=== PATIENT | female | born 1950 | race Caucasian/White ===

== ENCOUNTER 2022-12-13 18:41 | Inpatient (IN) | payer BC ==
[~2022-12-13] VITALS: Ht 170.2 cm; Wt 94.1 kg
[2022-12-13 19:31] LABS: CHLORIDE 107 mEq/L (98-107)
[2022-12-13 20:45] LABS: HEMATOCRIT. 22.7 % (36.0-48.0); HEMOGLOBIN. 8.8 g/dL (12.0-16.0); MEAN CORPUSCULAR HEMOGLOBIN 35.6 pg (28.0-32.0); MEAN CORPUSCULAR VOLUME 92.1 fL (81.0-99.0); MEAN PLATELET VOLUME 8.1 fl (7.4-10.4); PLATELET 333 x1000/uL (130-400); RED BLOOD CELL COUNT 2.46 mill/uL (4.2-5.4); RED CELL DISTRIBUTION WIDTH 17.7 % (11.6-14.6)
[2022-12-13 21:48] LABS: PLATELET ESTIMATE NORMAL
[2022-12-13] MEDS ORDERED: SODIUM CHLORIDE 0.9% 1,000 ML IV ONE (22:30)
[2022-12-13] MEDS: DEXT 5%/0.45% NACL 1000ML 1,000 ML IV SCH (23:45)
[2022-12-13] MEDS ORDERED: DIPHENHYDRAMINE 50MG/ML VIAL IV PRN (23:45)
[2022-12-13] MEDS ORDERED: ONDANSETRON HCL 4MG/2ML INJ IV PRN (23:45)
[2022-12-13] MEDS ORDERED: ACETAMINOPHEN 325MG TABLET PO PRN ×2 (23:45)
[2022-12-13] MEDS ORDERED: MAGNESIUM/ALUMINUM HYDROXIDE/SIMETHICONE 30ML UDC PO PRN (23:45)
[2022-12-14 06:42] LABS: CLARITY URINE CLOUDY (CLEAR); COLOR URINE YELLOW (YELLOW); KETONES URINE NEGATIVE (NEGATIVE); LEUKOCYTE ESTERASE URINE 3+ (NEGATIVE); NITRITE URINE NEGATIVE (NEGATIVE); OCCULT BLOOD URINE NEGATIVE (NEGATIVE); PROTEIN URINE 2+ (NEGATIVE); SPECIFIC GRAVITY URINE 1.017 (1.005-1.030); UROBILINOGEN URINE 0.2 E.U./dL (0.2-1.0)
[2022-12-14 09:34] VITALS: BP 110/62
[2022-12-14 09:52] VITALS: BP 110/62
[2022-12-14] MEDS: DEXT 5%/0.45% NACL 1000ML 1,000 ML IV SCH ×2 (11:00→21:50)
[2022-12-14 11:51] LABS: PHOSPHORUS 2.6 mg/dL (2.5-4.9)
[2022-12-14 12:00] VITALS: BP 106/58
[2022-12-14 12:17] LABS: HEPATITIS B SURFACE ANTIGEN NEGATIVE
[2022-12-14 12:44] LABS: MEAN CORPUSCULAR HEMOGLOBIN 31.1 pg (28.0-32.0); MEAN PLATELET VOLUME 8.6 fl (7.4-10.4); PLATELET 361 x1000/uL (130-400); RED BLOOD CELL COUNT 2.89 mill/uL (4.2-5.4); RED CELL DISTRIBUTION WIDTH 18.4 % (11.6-14.6)
[2022-12-14 14:08] LABS: PLATELET ESTIMATE NORMAL
[2022-12-14] MEDS: CITRIC ACID/SODIUM CITRATE SOLN 15ML UDC PO SCH ×2 (14:10→17:58)
[2022-12-14 16:00] VITALS: BP 105/63
[2022-12-14] MEDS ORDERED: MEROPENEM 1,000 MG in SODIUM CHLORIDE 0.9% 100 ML IV SCH (17:15)
[2022-12-14] MEDS ORDERED: ATOR20TA65 PO (19:01)
[2022-12-14] MEDS ORDERED: HYDR100T26 PO (19:01)
[2022-12-14] MEDS: MEROPENEM 500MG in NORMAL SALINE 50ML IV SCH (19:12)
[2022-12-14 20:00] VITALS: BP 112/61
[2022-12-15] VITALS: BP 118/69
[2022-12-15 04:00] VITALS: BP 138/62
[2022-12-15 05:06] LABS: PROTHROMBIN TIME 11.2 sec (9.6-11.0)
[2022-12-15 05:16] LABS: CHLORIDE 109 mEq/L (98-107)
[2022-12-15] MEDS: MEROPENEM 500MG in NORMAL SALINE 50ML IV SCH ×2 (06:06→18:10)
[2022-12-15] MEDS: DEXT 5%/0.45% NACL 1000ML 1,000 ML IV SCH (06:06)
[2022-12-15 06:43] LABS: HEMATOCRIT. 25.8 % (36.0-48.0); HEMOGLOBIN. 8.5 g/dL (12.0-16.0); MEAN CORPUSCULAR HEMOGLOBIN 28.3 pg (28.0-32.0); MEAN CORPUSCULAR VOLUME 85.4 fL (81.0-99.0); MEAN PLATELET VOLUME 8.4 fl (7.4-10.4); PLATELET 361 x1000/uL (130-400); RED BLOOD CELL COUNT 3.02 mill/uL (4.2-5.4); RED CELL DISTRIBUTION WIDTH 18.7 % (11.6-14.6)
[2022-12-15 08:00] VITALS: BP 98/49
[2022-12-15] MEDS: CITRIC ACID/SODIUM CITRATE SOLN 15ML UDC PO SCH ×3 (09:00→18:10)
[2022-12-15] MEDS ORDERED: MAGNESIUM HYDROXIDE 400MG/5ML 30ML UDC PO PRN (10:00)
[2022-12-15] MEDS ORDERED: SENNOSIDES 8.6MG TABLET PO PRN (10:00)
[2022-12-15 12:00] VITALS: BP 100/59
[2022-12-15 13:12] LABS: NUCLEATED RED BLOOD CELLS 3 /100 WBC; PLATELET ESTIMATE NORMAL
[2022-12-15 16:00] VITALS: BP 97/49
[2022-12-15] MEDS: DOCUSATE SODIUM 100MG CAPSULE PO SCH (18:10)
[2022-12-15 20:00] VITALS: BP 104/52
[2022-12-15] MEDS: ALLOPURINOL 100 MG TABLET PO SCH (21:39)
[2022-12-15] MEDS: HYDROXYUREA 500MG CAPSULE PO SCH (21:39)
[2022-12-16] VITALS: BP 120/57
[2022-12-16 04:00] VITALS: BP 120/69
[2022-12-16] MEDS: MEROPENEM 500MG in NORMAL SALINE 50ML IV SCH ×2 (06:17→17:23)
[2022-12-16] MEDS: DEXT 5%/0.45% NACL 1000ML 1,000 ML IV SCH (06:18)
[2022-12-16 08:00] VITALS: BP 105/62
[2022-12-16] MEDS: CITRIC ACID/SODIUM CITRATE SOLN 15ML UDC PO SCH ×3 (09:01→17:23)
[2022-12-16] MEDS: DOCUSATE SODIUM 100MG CAPSULE PO SCH ×2 (09:01→17:23)
[2022-12-16] MEDS: ALLOPURINOL 100 MG TABLET PO SCH (09:02)
[2022-12-16 11:35] LABS: BG BASE EXCESS -4.2 mmol/L (-2.0-2.0); BG CARBOXYHEMOGLOBIN 0.1 % (0.5-1.5); BG DEOXYHEMOGLOBIN 8.2 % (0.0-5.0); BG FRACTION INSPIRED OXYGEN 28; BG HCO3 ACT 19.3 mmol/L (22.0-26.0); BG METHEMOGLOBIN 0.4 % (0.0-1.5); BG OXYGEN SATURATION 91.8 % (92.0-98.5); BG OXYHEMOGLOBIN 91.3 % (94.0-97.0); BG PCO2 29.7 mmHg (35.0-45.0); BG SAMPLE SITE LEFT RADIAL; BG TOTAL HEMOGLOBIN 10.2 g/dL (12.0-18.0); BG VENT MODE NASAL CANNULA
[2022-12-16 12:00] VITALS: BP 108/67
[2022-12-16 16:00] VITALS: BP 109/53
[2022-12-16 20:00] VITALS: BP 119/59
[2022-12-16] MEDS: HYDROXYUREA 500MG CAPSULE PO SCH (21:14)
[2022-12-17] VITALS: BP 106/57
[2022-12-17] MEDS: DEXT 5%/0.45% NACL 1000ML 1,000 ML IV SCH ×3 (00:46→18:03)
[2022-12-17 04:00] VITALS: BP 110/58
[2022-12-17] MEDS: MEROPENEM 500MG in NORMAL SALINE 50ML IV SCH ×2 (05:39→18:02)
[2022-12-17 06:02] LABS: CHLORIDE 104 mEq/L (98-107)
[2022-12-17 07:01] LABS: HEMATOCRIT. 25.1 % (36.0-48.0); HEMOGLOBIN. 8.4 g/dL (12.0-16.0); MEAN CORPUSCULAR HEMOGLOBIN 28.5 pg (28.0-32.0); MEAN CORPUSCULAR VOLUME 85.7 fL (81.0-99.0); MEAN PLATELET VOLUME 8.2 fl (7.4-10.4); PLATELET 352 x1000/uL (130-400); RED BLOOD CELL COUNT 2.93 mill/uL (4.2-5.4); RED CELL DISTRIBUTION WIDTH 18.6 % (11.6-14.6)
[2022-12-17 08:00] VITALS: BP 114/61
[2022-12-17] MEDS: DOCUSATE SODIUM 100MG CAPSULE PO SCH ×2 (09:51→18:02)
[2022-12-17] MEDS: CITRIC ACID/SODIUM CITRATE SOLN 15ML UDC PO SCH ×3 (09:52→18:02)
[2022-12-17] MEDS: ALLOPURINOL 100 MG TABLET PO SCH (09:52)
[2022-12-17] MEDS ORDERED: FENTANYL CITRATE/PF 50MCG/ML 2ML VIAL ONE (11:43)
[2022-12-17] MEDS ORDERED: MIDAZOLAM HCL 5 MG/5 ML VIAL ONE (11:44)
[2022-12-17] MEDS ORDERED: IPRATROPIUM/ALBUTEROL 0.5-3(2.5)MG/3ML NEB ONE (11:45)
[2022-12-17] MEDS ORDERED: IPRATROPIUM/ALBUTEROL 0.5-3(2.5)MG/3ML NEB HHN NR (11:45)
[2022-12-17 12:00] VITALS: BP 118/59
[2022-12-17] MEDS ORDERED: ONDANSETRON HCL 4MG/2ML INJ ONE (12:17)
[2022-12-17] MEDS ORDERED: METOCLOPRAMIDE HCL 10MG/2ML VIAL ONE (12:17)
[2022-12-17 15:20] LABS: NUCLEATED RED BLOOD CELLS 2 /100 WBC
[2022-12-17 15:23] LABS: PLATELET ESTIMATE NORMAL
[2022-12-17 16:00] VITALS: BP 99/52
[2022-12-17 20:00] VITALS: BP 102/51
[2022-12-17] MEDS: HYDROXYUREA 500MG CAPSULE PO SCH (21:49)
[2022-12-18] VITALS: BP 98/55
[2022-12-18] MEDS: DEXT 5%/0.45% NACL 1000ML 1,000 ML IV SCH (00:29)
[2022-12-18 04:00] VITALS: BP 101/56
[2022-12-18] MEDS: MEROPENEM 500MG in NORMAL SALINE 50ML IV SCH ×2 (05:09→17:57)
[2022-12-18 08:00] VITALS: BP 97/60
[2022-12-18] MEDS: SODIUM CHLORIDE 0.9% 1,000 ML IV SCH (10:37)
[2022-12-18] MEDS: CITRIC ACID/SODIUM CITRATE SOLN 15ML UDC PO SCH ×3 (10:38→17:56)
[2022-12-18] MEDS: ALLOPURINOL 100 MG TABLET PO SCH (10:38)
[2022-12-18] MEDS: DOCUSATE SODIUM 100MG CAPSULE PO SCH ×2 (10:39→17:56)
[2022-12-18 12:00] VITALS: BP 104/61
[2022-12-18] MEDS ORDERED: FUROSEMIDE 40MG/4ML VIAL IVP NR (15:15)
[2022-12-18 16:00] VITALS: BP 106/61
[2022-12-18 18:58] LABS: HEMATOCRIT. 24.7 % (36.0-48.0); HEMOGLOBIN. 8.1 g/dL (12.0-16.0); MEAN CORPUSCULAR HEMOGLOBIN 28.7 pg (28.0-32.0); MEAN CORPUSCULAR VOLUME 87.2 fL (81.0-99.0); MEAN PLATELET VOLUME 8.4 fl (7.4-10.4); PLATELET 316 x1000/uL (130-400); RED BLOOD CELL COUNT 2.84 mill/uL (4.2-5.4); RED CELL DISTRIBUTION WIDTH 19.1 % (11.6-14.6)
[2022-12-18 20:00] VITALS: BP 92/43
[2022-12-18] MEDS: HYDROXYUREA 500MG CAPSULE PO SCH (20:06)
[2022-12-18 20:10] LABS: NUCLEATED RED BLOOD CELLS 3 /100 WBC; PLATELET ESTIMATE NORMAL
[2022-12-19 00:49] VITALS: BP 101/61
[2022-12-19 04:00] VITALS: BP 108/57
[2022-12-19] MEDS: SODIUM CHLORIDE 0.9% 1,000 ML IV SCH (04:06)
[2022-12-19] MEDS: MEROPENEM 500MG in NORMAL SALINE 50ML IV SCH (05:25)
[2022-12-19 08:00] VITALS: BP 111/55
[2022-12-19] MEDS: CITRIC ACID/SODIUM CITRATE SOLN 15ML UDC PO SCH ×2 (09:52→12:42)
[2022-12-19] MEDS: ALLOPURINOL 100 MG TABLET PO SCH (09:53)
[2022-12-19] MEDS: DOCUSATE SODIUM 100MG CAPSULE PO SCH (09:53)
[2022-12-19] MEDS ORDERED: FUROSEMIDE 40MG/4ML VIAL IVP NR (11:30)
[2022-12-19 11:59] LABS: BG BASE EXCESS -2.3 mmol/L (-2.0-2.0); BG CARBOXYHEMOGLOBIN 0.6 % (0.5-1.5); BG DEOXYHEMOGLOBIN 3.4 % (0.0-5.0); BG FRACTION INSPIRED OXYGEN 40; BG HCO3 ACT 21.1 mmol/L (22.0-26.0); BG METHEMOGLOBIN 0.5 % (0.0-1.5); BG OXYGEN SATURATION 96.6 % (92.0-98.5); BG OXYHEMOGLOBIN 95.5 % (94.0-97.0); BG PCO2 30.3 mmHg (35.0-45.0); BG PO2 88.2 mmHg (75.0-100.0); BG SAMPLE SITE RIGHT RADIAL; BG TOTAL HEMOGLOBIN 8.2 g/dL (12.0-18.0); BG VENT MODE NASAL CANNULA
[2022-12-19 12:00] VITALS: BP 116/60
[2022-12-19] MEDS ORDERED: IPRATROPIUM/ALBUTEROL 0.5-3(2.5)MG/3ML NEB HHN SCH (12:00)
[2022-12-19 12:37] LABS: CHLORIDE 106 mEq/L (98-107)
[2022-12-19 12:56] LABS: HEMATOCRIT. 25.5 % (36.0-48.0); HEMOGLOBIN. 8.3 g/dL (12.0-16.0); MEAN CORPUSCULAR VOLUME 86.4 fL (81.0-99.0); MEAN PLATELET VOLUME 8.6 fl (7.4-10.4); PLATELET 308 x1000/uL (130-400); RED BLOOD CELL COUNT 2.96 mill/uL (4.2-5.4)
[2022-12-19 13:13] VITALS: BP 116/60
[2022-12-19 13:53] LABS: NUCLEATED RED BLOOD CELLS 2 /100 WBC; PLATELET ESTIMATE NORMAL
== END 2022-12-19 15:00 | disposition short-term general hospital (02) | DRG 834 ==
LOC: ER 19:27 → ENRESERV 12-14 07:22 → 7WST 12-14 09:14
PROVIDERS: ADMIT Internal Medicine; ATTEND Internal Medicine
PROC: 079T3ZX Drainage of Bone Marrow, Percutaneous Approach, Diagnostic (ICD-10-PCS; principal; 2022-12-17)
DX: C95.00 Acute leukemia of unspecified cell type not having achieved remission (principal); A41.9 Sepsis, unspecified organism; E88.3 Tumor lysis syndrome; R65.20 Severe sepsis without septic shock; C85.90 Non-Hodgkin lymphoma, unspecified, unspecified site; E46 Unspecified protein-calorie malnutrition; E87.20 Acidosis, unspecified; N17.9 Acute kidney failure, unspecified; N39.0 Urinary tract infection, site not specified; J84.9 Interstitial pulmonary disease, unspecified; D64.9 Anemia, unspecified; E78.00 Pure hypercholesterolemia, unspecified; Z20.822 Contact with and (suspected) exposure to COVID-19; E83.52 Hypercalcemia; I12.9 Hypertensive chronic kidney disease with stage 1 through stage 4 chronic kidney disease, or unspecified chronic kidney disease; R74.01 Elevation of levels of liver transaminase levels; E87.70 Fluid overload, unspecified; N18.9 Chronic kidney disease, unspecified; Z83.3 Family history of diabetes mellitus; Z98.51 Tubal ligation status; Z68.32 Body mass index [BMI] 32.0-32.9, adult
CPT/HCPCS: 36415; 36600; 38220; 71045; 71250; 74176; 76770; 78580; 80048; 80053; 81003; 82375; 82550; 82570; 82805; 82962; 83605; 83615; 83735; 83970; 84100; 84145; 84300; 84484; 84550; 85025; 85060; 85097; 85379; 86803; 87340; 87426; 93005; 93306; 93880; 93970; 94640; 99291; C1893; J1940; J2185; J2250; J2405; J2765; J3010; J7030; A4315